=== PATIENT | female | born 1990 | race Caucasian/White ===

== ENCOUNTER 2017-03-06 12:35 | Day surgery (SDC) | payer BC ==
[~2017-03-06] VITALS: Ht 160 cm; Wt 59.5 kg
[2017-03-06 14:08] VITALS: Ht 160 cm; Wt 59.5 kg
[2017-03-06] MEDS ORDERED: NO MEDS (14:14)
[2017-03-06 14:17] VITALS: BP 95/52; PULSE 62; RESP 18
[2017-03-06] MEDS ORDERED: FENTAnyl 50 MCG/ML VIAL ONE (14:58)
[2017-03-06] MEDS ORDERED: MIDAZOLAM 1 MG/ML 2 ML INJ ONE ×2 (14:58)
--- NOTE | 2017-03-06 15:01 | OPPN ---
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
[2017-03-06 15:10] VITALS: BP 97/62; RESP 20
--- NOTE | 2017-03-06 23:23 | GILP ---
DATE OF PROCEDURE: NAME OF PROCEDURE: Colonoscopy. SURGEON: Pierce Jackson MD PREOPERATIVE DIAGNOSIS: Screening colonoscopy. POSTOPERATIVE DIAGNOSES: 1. Colonoscopy all the way to the cecum. 2. Internal hemorrhoids. 3. No colon neoplasm was identified. INDICATION FOR THE PROCEDURE: Ms. Christine Whaley is a 26-year-old female patient who has a strong family history of colon cancer. Her mother had colon cancer at young age. 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 The procedure and possible complications were well explained to the patient. She understood and consented to the procedure. DESCRIPTION OF PROCEDURE: Under the influence of fentanyl and Versed, the colonoscope was carefully introduced in the rectum and under direct vision, it was advanced all the way to the cecum. FINDINGS: The patient had internal hemorrhoids. No colon neoplasm was identified. She tolerated the procedure very well. There was no complication from the procedure. At the end of the procedure, she was awake with stable vital signs, and she was discharged home to the care of her family. IMPRESSION: Please see postoperative diagnoses. PLAN: Next screening colonoscopy in 3 to 5 years. Dictated By: PIERCE CAT/LESLIE Conf#: [id number] DID#: [id number] YOBANI
== END 2017-03-06 17:24 | disposition home or self-care (01) ==
LOC: GIL 12:35
PROVIDERS: ATTEND Internal Medicine Gastroenterology
DX: Z12.11 Encounter for screening for malignant neoplasm of colon (principal); K64.8 Other hemorrhoids
CPT/HCPCS: 45378; 84703; J2250; J3010